=== PATIENT | male | born 1955 | race Caucasian/White ===

== ENCOUNTER 2016-11-07 16:33 | Inpatient (IN) | payer BC ==
[~2016-11-07] VITALS: Ht 180.3 cm; Wt 95.0 kg
[~2016-11-07 16:33] MED LIST: DIPH25CA58 PO
[2016-11-07] MEDS: fentaNYL PF VIAL 100 MCG/2 ML VIAL IV PRN ×3 (17:49→18:55)
[2016-11-07 18:21] LABS: BASO % 0 % (0-3); EOS % 0 % (0-3); HEMATOCRIT 46.3 % (39.0-53.0); HEMOGLOBIN 15.3 g/dL (13.0-17.5); LYMPH # 1.7 x10^3/uL (1.0-4.8); LYMPH % 14 % (24-48); MEAN CORPUSCULAR HEMOGLOBIN 31 pg (25-35); MEAN CORPUSCULAR HGB CONC 33 g/dL (31-37); MEAN CORPUSCULAR VOLUME 95 fL (79-100); MONO % 7 % (0-9); NEUT % 78 % (31-73); PLATELET COUNT 266 x10^3/uL (140-400); RED BLOOD COUNT 4.86 x10^6/uL (4.30-5.70); RED CELL DISTRIBUTION WIDTH 14.1 % (11.5-14.5); WHITE BLOOD COUNT 12.1 x10^3/uL (4.0-11.0)
[2016-11-07 18:31] LABS: CALCIUM 10.3 mg/dL (8.5-10.1); CREATININE 1.1 mg/dL (0.7-1.3); GFR 67.6; POTASSIUM 4.3 mmol/L (3.5-5.1)
[2016-11-07] MEDS: MORPHINE SULFATE 4 MG/ML DISP.SYRIN. IV/SQ PRN ×2 (19:50→21:32)
--- NOTE | 2016-11-07 20:24 | RAD ---
EXAM: CT pelvis without contrast. HISTORY: Right hip pain after a fall. TECHNIQUE: CT of the pelvis was performed without contrast. COMPARISON: None. FINDINGS: Sigmoid diverticulosis is moderate. Some stranding in the root of the mesentery is consistent with mesenteric panniculitis, an incidental finding of no clinical significance. The appendix is not inflamed. There are moderate atherosclerotic calcifications. There are no pathologically enlarged lymph nodes. There is no detectable femoral fracture bilaterally. The joint spaces and alignment of both hips are maintained. There is a small left hip effusion. No pelvic fractures are seen. 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 Degenerative disc disease is moderate to severe at L5-S1. This results in a moderate posterior disc-osteophyte complex. Central canal stenosis is moderate. Neural foraminal stenosis is moderate to severe bilaterally. IMPRESSION: 1. No fractures are identified. There is a small left hip effusion. MRI could assess for soft tissue pathology or completely nondisplaced fractures if there is persistent concern. 2. Moderate to severe degenerative disc disease at L5-S1 with moderate central canal stenosis and moderate to severe bilateral neural foraminal stenosis. *One or more of the following individualized dose reduction techniques were utilized for this examination: 1. Automated exposure control. 2. Adjustment of the mA and/or kV according to patient size. 3. Use of iterative reconstruction technique. Electronically signed by: Donal Joya MD (11/07/2016 8:21 PM) [facility]
[2016-11-07] MEDS ORDERED: ONDANSETRON PF 4 MG/2 ML VIAL. IV PRN (21:30)
[2016-11-07] MEDS ORDERED: ACETAMINOPHEN 325 MG TABLET. PO PRN (21:30)
[2016-11-07 22:30] VITALS: BP 131/77
--- NOTE | 2016-11-07 22:51 | PHYS DOC ---
Past Medical History Past Medical History: Arthritis, Other Additional Past Medical Histor: bilat shoulder pain Past Surgical History: Other Additional Past Surgical Histo: bilat shoulder sx, Alcohol Use: Occasionally Drug Use: None Adult General Chief Complaint Chief Complaint: HIP PAIN HPI HPI Patient is a 61 year old male who presents with left hip pain. The patient reports he accidentally rolled out of bed 4 days ago and fell onto his left side. He denies head trauma or loss of consciousness at that time. Reports severe hip pain and has been unable to ambulate since the time of the fall. He typically does not require a cane or walker for ambulation. Denies previous history of hip injury or surgery. Seen by his PCP today and referred here for further evaluation. PCP is Dr. Villarreal. Review of Systems Review of Systems Constitutional: Denies fever or chills HENT: Denies nasal congestion or sore throat Respiratory: Denies cough or shortness of breath Cardiovascular: Denies chest pain or edema GI: Denies abdominal pain, nausea, vomiting Musculoskeletal: Reports hip pain Integument: Denies rash or skin lesions Neurologic: Denies headache, focal weakness or sensory changes Current Medications Current Medications Current Medications Medications (Trade) Dose Ordered Sig/Zaria Start Time Stop Time Status Last Admin Dose Admin Fentanyl Citrate (Fentanyl 2ml Vial) 50 mcg PRN Q15MIN PRN 11/07/16 17:30 11/08/16 17:29 11/07/16 18:55 50 MCG Morphine Sulfate 4 mg PRN Q15MIN PRN 11/07/16 19:15 11/08/16 19:14 11/07/16 21:32 4 MG Allergies Allergies Allergies Coded Allergies Type Severity Reaction Last Updated Verified sulindac Allergy Severe 02/23/16 Yes Physical Exam Physical Exam Constitutional: Well developed, well nourished, no acute distress, non-toxic appearance. HENT: Normocephalic, atraumatic, bilateral external ears normal, oropharynx moist, nose normal. Eyes: PERRLA, EOMI, conjunctiva normal, no discharge. Neck: supple, no stridor. no midline c-spine tenderness. Cardiovascular: RRR, no murmurs, no edema. Lungs & Thorax: LCTAB, no wheezing, no respiratory distress. Abdomen: soft, nontender, nondistended. Skin: Warm, dry, no erythema, no rash. Back: No spinal tenderness or step offs. Extremities: left hip no swelling or deformity, diffuse tenderness laterally & posteriorly with palpation, no knee or ankle tenderness, unable to perform any active range of motion at the hip, DP and PT 2+, sensation intact to the foot Neurologic: Alert and oriented X 3, normal motor & sensory function, no focal deficits noted. Psychologic: Affect normal, judgement normal, mood normal. Current Patient Data Vital Signs Vital Signs Date Time Temp Pulse Resp B/P (MAP) Pulse Ox O2 Delivery O2 Flow Rate FiO2 11/07/16 20:25 Room Air 11/07/16 19:30 84 147/93 (111) 95 11/07/16 18:55 24 11/07/16 17:13 98.1 98.1 Lab Values Laboratory Tests Test 11/07/16 17:20 White Blood Count 12.1 x10^3/uL (4.0-11.0) H Red Blood Count 4.86 x10^6/uL (4.30-5.70) Hemoglobin 15.3 g/dL (13.0-17.5) Hematocrit 46.3 % (39.0-53.0) Mean Corpuscular Volume 95 fL (79-100) Mean Corpuscular Hemoglobin 31 pg (25-35) Mean Corpuscular Hemoglobin Concent 33 g/dL (31-37) Red Cell Distribution Width 14.1 % (11.5-14.5) Platelet Count 266 x10^3/uL (140-400) Neutrophils (%) (Auto) 78 % (31-73) H Lymphocytes (%) (Auto) 14 % (24-48) L Monocytes (%) (Auto) 7 % (0-9) Eosinophils (%) (Auto) 0 % (0-3) Basophils (%) (Auto) 0 % (0-3) Neutrophils # (Auto) 9.5 x10^3uL (1.8-7.7) H Lymphocytes # (Auto) 1.7 x10^3/uL (1.0-4.8) Monocytes # (Auto) 0.8 x10^3/uL (0.0-1.1) Eosinophils # (Auto) 0.1 x10^3/uL (0.0-0.7) Basophils # (Auto) 0.0 x10^3/uL (0.0-0.2) Sodium Level 132 mmol/L (136-145) L Potassium Level 4.3 mmol/L (3.5-5.1) Chloride Level 95 mmol/L (98-107) L Carbon Dioxide Level 24 mmol/L (21-32) Anion Gap 13 (6-14) Blood Urea Nitrogen 18 mg/dL (8-26) Creatinine 1.1 mg/dL (0.7-1.3) Estimated GFR (Cockcroft-Gault) 67.6 Glucose Level 108 mg/dL (70-99) H Calcium Level 10.3 mg/dL (8.5-10.1) H Laboratory Tests 11/07/16 17:20 Laboratory Tests 11/07/16 17:20 EKG EKG [] Radiology/Procedures Radiology/Procedures PROCEDURE: CT PELVIS WO CONTRAST EXAM: CT pelvis without contrast. HISTORY: Right hip pain after a fall. TECHNIQUE: CT of the pelvis was performed without contrast. COMPARISON: None. FINDINGS: Sigmoid diverticulosis is moderate. Some stranding in the root of the mesentery is consistent with mesenteric panniculitis, an incidental finding of no clinical significance. The appendix is not inflamed. There are moderate atherosclerotic calcifications. There are no pathologically enlarged lymph nodes. There is no detectable femoral fracture bilaterally. The joint spaces and alignment of both hips are maintained. There is a small left hip effusion. No pelvic fractures are seen. 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 Degenerative disc disease is moderate to severe at L5-S1. This results in a moderate posterior disc-osteophyte complex. Central canal stenosis is moderate. Neural foraminal stenosis is moderate to severe bilaterally. IMPRESSION: 1. No fractures are identified. There is a small left hip effusion. MRI could assess for soft tissue pathology or completely nondisplaced fractures if there is persistent concern. 2. Moderate to severe degenerative disc disease at L5-S1 with moderate central canal stenosis and moderate to severe bilateral neural foraminal stenosis. *One or more of the following individualized dose reduction techniques were utilized for this examination: 1. Automated exposure control. 2. Adjustment of the mA and/or kV according to patient size. 3. Use of iterative reconstruction technique. Electronically signed by: Donal Joya MD (11/07/2016 8:21 PM) [facility] DICTATED and SIGNED BY: TAN JOYA MD DATE: 11/07/162011 X-ray left hip and pelvis: Interpreted by me: No fracture or dislocation, no acute process [] Course & Med Decision Making Course & Med Decision Making Pertinent Labs and Imaging studies reviewed. (See chart for details) The patient presents with hip pain after fall. He appears to be a significant amount of discomfort when being moved from the wheelchair to the bed. Gave fentanyl as well as morphine for pain. X-ray showed no obvious fracture. Obtain CT of the pelvis to rule out occult fracture. There was no demonstrated fracture on CT. However there was a hip effusion. See additional recommendations made by radiologist for further workup. I did recommend admission to the hospital for further evaluation and treatment given severity of patient's pain. The patient agreed with plan of care. Discussed with Dr. Villarreal who agrees to admit to inpatient status. We'll place rehabilitation consult to Dr. Gómez. The patient is being admitted in stable condition. [] Dragon Disclaimer Dragon Disclaimer This electronic medical record was generated, in whole or in part, using a voice recognition dictation system. Departure Departure Impression: Primary Impression: Hip pain Disposition: 01 HOME, SELF-CARE Admitting Physician: David Villarreal Condition: STABLE RAHUL DON MD Nov 07, 2016 22:51
[2016-11-08] VITALS (7 sets, daily range): BP systolic 73–135; BP diastolic 35–95
--- NOTE | 2016-11-08 01:05 | ACF ---
Admission Forms Criteria PAIN MANAGEMENT GR Clinical Indications for Admission to Inpatient Care (Place 'X' for any and all applicable criteria): Hospital admission is needed for appropriate care of the patient because of 1 or more of the following are present (1)(2)(3)(4)(5): [ ]I. Severe pain requiring acute inpatient management as indicated by 1 or more of the following (2)(5)(10): [ ]a) Continuous or frequent (eg, every 2 to 4 hours) parenteral analgesics required [A] [ ]b) Necessity (ie, alternative approaches not effective) for analgesic regimen that can only be performed or initiated in inpatient setting [X]II. Pain causing debilitation to the point of inability to function or be supported at any other level of care [ ]III. Severe side effects from pain medications as indicated by ANY ONE of the following (12)(13)(14)(15): [ ]a) Uncontrollable seizures [ ]b) Cardiac arrhythmias of immediate concern [ ]c) Dehydration that is severe or persistent [ ]d) Vomiting that is severe or persistent [ ]e) Altered mental status that is severe or persistent [ ]f) Obstipation with inadequate GI function to maintain nutrition The original [employer] content created by [employer] has been revised. The portions of the content which have been revised are identified through the use of italic text or in bold, and [facility] has neither reviewed nor approved the modified material. All other unmodified content is copyright [employer]. Please see references footnoted in the original [employer] edition 2016 Admission Criteria Met?: Yes JESSENIA MARCELO Nov 08, 2016 01:05
[2016-11-08] MEDS: MORPHINE SULFATE 4 MG/ML DISP.SYRIN. IV PRN ×3 (01:58→12:48)
--- NOTE | 2016-11-08 07:17 | RAD ---
HIP LEFT 2V WITH PELVIS Clinical Indication: fall pain Comparison: None. Findings: No acute fracture or malalignment. Mild bilateral hip, bilateral SI joint, and pubic symphysis arthrosis. Bony mineralization is normal for the patient's age. No significant soft tissue abnormality. IMPRESSION: 1. No acute fracture or malalignment. 2. Mild bilateral hip, bilateral SI joint, and pubic symphysis arthrosis.
--- NOTE | 2016-11-08 08:57 | PDOC ---
Provider Note Provider Note [id number] MANUEL CROUCH MD Nov 08, 2016 08:57
[2016-11-08] MEDS: FAMOTIDINE 20 MG TABLET. PO SCH ×2 (09:24→21:28)
[2016-11-08] MEDS: CELECOXIB 200 MG CAPSULE. PO SCH ×2 (09:25→21:28)
--- NOTE | 2016-11-08 09:45 | HP ---
ADMIT DATE: 11/07/2016 CHIEF COMPLAINT: Joint pain. HISTORY OF PRESENT ILLNESS: A 61-year-old white male, who has a history of multiple joint pains, and has been stiff and sore in his hands recently and then had a fall at home, hitting his left hip and has been unable to bear weight since then. X-rays and CT did not show any fractures, though some arthritic changes in the hip and low back and he has got a small joint effusion in the left hip as well. He relates ongoing pain in both hands, the right knee and left hip for quite a while before the falls. He is recovering from bilateral shoulder replacement surgery done at [facility] in the last, about 3 months ago. He is on no prescription medicines. PAST MEDICAL HISTORY: ALLERGIES TO SULINDAC. He has had some arthroscopic surgery of both knees, but no other joint replacements aside from the shoulder replacements, or any other medical surgeries. SOCIAL HISTORY: Still a smoker, trying to quit. He has been smoking for about 40 years. A light drinker. , not employed. FAMILY HISTORY: Unremarkable. No history in the family of gout, rheumatoid arthritis, lupus, or other causes of vascular diseases. REVIEW OF SYSTEMS: No other specific complaints. OBJECTIVE: ENT: All within normal limits. NECK: No bruits, nodes, or masses. LUNGS: Clear with decreased breath sounds. CARDIOVASCULAR: Regular rate. Mild tachycardia. No murmur. ABDOMEN: Soft, benign, and nontender. No masses, megaly, or nodes. EXTREMITIES: Left hand is tender, specifically index and middle finger. MCP joints with some swelling and redness present. Right hand is less tender. No edema is noted. Both wrists are mildly tender, and the right knee is warm without effusion, left knee is cool. Ankles and feet are normal. He has good distal pulses. He has 2+ clubbing of the fingernails bilaterally. Elbows are unremarkable. NEUROLOGIC: Physiologic, not able to move well. Moves all extremities equally. Gait was not tested. No tremors were noted. Cranial nerves, motor, sensory, and cerebellar appear to be intact. Mental status is intact. 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 PLAN: Sed rate, uric acid, MAGGI, and rheumatoid factor. We will start Meloxicam and Pepcid and consider injecting the left trochanteric bursa, which is tender. MANUEL CROUCH MD DR: CHARLIE/ryan JOB#: [id number] / [id number]
--- NOTE | 2016-11-08 12:16 | CONS ---
DATE OF CONSULTATION: 11/08/2016 ATTENDING PHYSICIAN: David Villarreal MD. The patient was seen at the request of Dr. Villarreal for rehab evaluation. 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 The patient with history of degenerative joint disease, status post bilateral shoulder surgeries, reverse shoulder arthroplasty on the right side. The patient was admitted with left hip pain. He reportedly accidentally rolled out of bed four days ago and fell on his left side. The patient is having severe pain in his left hip and unable to ambulate ever since that time. The patient has been independent with his mobility and self-care prior to the present hospitalization, has been working on a regular basis. He lives with his in a [facility] home, had stairs to manage. The patient is known ALLERGIC TO SULINDAC. The patient admits some numbness in his left hand. He also admits pain in his right elbow and left hand with associated swelling. The patient had x-rays and CT scan of his pelvis and left hip, which failed to reveal any acute abnormality. It revealed mild degenerative changes in the lumbar spine and both hips. The patient denies any trouble to the bowel or bladder control or any neck pain at present time. PHYSICAL EXAMINATION: Today revealed a middle-aged male. He is in moderate distress about his left hip, left hand and right elbow. He had tenderness to palpation left index and middle fingers at metacarpophalangeal joint with there is some swelling. He also had tenderness to palpation over right lateral humeral epicondylar area and adjoining forearm extensor muscles and left gluteal muscles, left trochanteric bursa and to some extent over left sacroiliac joint area. He had significant discomfort while trying to move his left hip, which is painfully limited. The patient had 4+/5 grade muscle strength overall though he is having difficulty to try to make a ____ with his left hand and also pain while trying to extend his right elbow. He had pain on range of motion of his right elbow and also left hand. Deep tendon reflexes are 2+ and symmetrical and he had equal perception of touch and pinprick sensation bilaterally. He is having significant discomfort in trying to move in the bed. Straight leg raising test is negative bilaterally. 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 RECOMMENDATIONS: To obtain MRI scan of his lumbar spine and left hip and to obtain x-rays of his right elbow and left hand to ask Orthopedics to see him about his left hip pain. Dr. Villarreal, I appreciate asking me to participate in the care of this interesting patient. I will be glad to follow him with you as needed for the rehabilitation. SASKIA MARK MD DR: VISHNU/ryan JOB#: [id number] / [id number]
--- NOTE | 2016-11-08 13:49 | RAD ---
Chest, 2 views, 11/08/2016: History: Fever Comparison is made to a study from 09/26/2014. The heart size is normal. There is calcific plaquing of the aorta. There are moderate reticular nodular interstitial type opacities in the lungs. These appear to have worsened since 09/26/2014. No pulmonary mass is seen. There is no evidence of pleural fluid. Moderate hypertrophic spurring is present in the spine. Bilateral shoulder prostheses are now in place. IMPRESSION: Moderate bilateral interstitial opacities appear to have worsened since 09/26/2014. This may represent worsening chronic interstitial lung disease or superimposed atypical pneumonia.
--- NOTE | 2016-11-08 13:53 | RAD ---
Right elbow, 3 views, 11/08/2016: History: Fall, pain The bony structures are demineralized. Small calcific densities along the posterior margin of the olecranon process are sclerotic and are most likely old or chronic. No definite acute fracture is seen. There is bowing of the fat pads at the elbow joint suggesting a joint effusion. Right forearm, 2 views, 11/08/2016: No forearm fracture is identified. There is mild subcutaneous edema about the forearm. IMPRESSION: 1. Mild patchy bony demineralization. 2. Small calcific densities along the posterior margin of the proximal ulna are probably old. A recent cortical fracture is less likely. 3. Right elbow joint effusion.
[2016-11-08] MEDS: HYDROcodone/APAP 5/325MG 1 TAB TABLET PO PRN ×2 (13:58→18:28)
--- NOTE | 2016-11-08 15:22 | RAD ---
Bilateral hands, 6 views, 11/08/2016: History: Bilateral hand swelling and left pain There is patchy bony demineralization. There are mild degenerative changes at scattered interphalangeal joints. No definite bone erosions are seen. No acute fracture or dislocation is identified. IMPRESSION: No acute bony abnormality is detected.
[2016-11-08 16:06] LABS: BILIRUBIN,URINE SMALL (NEG); GLUCOSE,URINE NEGATIVE (NEG); NITRITE,URINE NEGATIVE (NEG); PROTEIN,URINE NEGATIVE (NEG-TRACE)
[2016-11-08 16:18] LABS: BACTERIA,URINE 0 /HPF (0-FEW); RBC,URINE 0 /HPF (0-2); SQUAMOUS EPITHELIAL CELL,UR OCC /LPF; WBC,URINE OCC /HPF (0-4)
[2016-11-08 20:11] LABS: RHEUMATOID FACTOR 17.4 IU/mL (0.0-13.9)
[2016-11-09] MEDS: HYDROcodone/APAP 5/325MG 1 TAB TABLET PO PRN ×3 (00:45→17:40)
[2016-11-09 03:16] VITALS: BP 113/71
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
[2016-11-09 07:00] VITALS: BP 123/82
[2016-11-09] MEDS: FAMOTIDINE 20 MG TABLET. PO SCH ×2 (08:46→21:14)
[2016-11-09] MEDS: CELECOXIB 200 MG CAPSULE. PO SCH (08:46)
--- NOTE | 2016-11-09 09:45 | PDOC ---
Provider Note Provider Note a little less pain w/ meds- joints back tender insulation board- esr high 96, uric acid ok, RA + - feel clinically he has RA- will inject roch bursa, start prednisone, do anti ccp,, after dc will discuss plaquenil and MTX in office if CCP +- depomedrol 40 mg/marcaine 3 ml inj 25 g to L GT bursa, sherice well- could have component of PMR as well- will dc when he is able to walk safely, likely 11/10 MANUEL CROUCH MD Nov 09, 2016 09:45
--- NOTE | 2016-11-09 09:47 | DISCH ---
DISCHARGE INSTRUCTIONS Condition on Discharge Condition on Discharge: Stable Activity After Discharge Activity Instructions for Disc: Activity as tolerated Follow-Up Follow up with: MANUEL Monson MD Nov 09, 2016 09:47
[2016-11-09] MEDS ORDERED: BUPIVACAINE MPF 0.25% 10 ML VIAL. IJ ONE (10:00)
[2016-11-09] MEDS ORDERED: methylPREDNISolone ACETATE 40 MG/ML VIAL. INJ ONE (10:00)
[2016-11-09] MEDS ORDERED: BUPIVACAINE MPF 0.25% 10 ML VIAL. ONE (10:00)
[2016-11-09] MEDS ORDERED: methylPREDNISolone ACETATE 40 MG/ML VIAL. ONE (10:00)
--- NOTE | 2016-11-09 10:04 | PDOC ---
PROGRESS NOTES Subjective Subjective He feels better after left trochanteric bursa injection. Objective Objective Vital Signs Date Time Temp Pulse Resp B/P (MAP) Pulse Ox O2 Delivery O2 Flow Rate FiO2 11/09/16 08:32 Room Air 11/09/16 07:00 97.9 71 16 123/82 (96) 96 97.9 Intake and Output 11/09/16 07:00 Intake Total 1860 ml Output Total 600 ml Balance 1260 ml Intake Oral 1860 ml Output Urine Total 600 ml # Voids 1 Physical Exam Physical Exam He is moving his left lower extremity with less pain this AM but still having some pain on movement of right elbow and less stiffness in his left hand.I spoke to . Plan Plan of Care Hopefully home tomorrow when medically stable. Comment Review of Relevant I have reviewed the following items mustapha (where applicable) has been applied. Labs Laboratory Tests Test 11/07/16 17:20 11/08/16 12:45 11/08/16 15:45 White Blood Count 12.1 x10^3/uL (4.0-11.0) Red Blood Count 4.86 x10^6/uL (4.30-5.70) Hemoglobin 15.3 g/dL (13.0-17.5) Hematocrit 46.3 % (39.0-53.0) Mean Corpuscular Volume 95 fL (79-100) Mean Corpuscular Hemoglobin 31 pg (25-35) Mean Corpuscular Hemoglobin Concent 33 g/dL (31-37) Red Cell Distribution Width 14.1 % (11.5-14.5) Platelet Count 266 x10^3/uL (140-400) Neutrophils (%) (Auto) 78 % (31-73) Lymphocytes (%) (Auto) 14 % (24-48) Monocytes (%) (Auto) 7 % (0-9) Eosinophils (%) (Auto) 0 % (0-3) Basophils (%) (Auto) 0 % (0-3) Neutrophils # (Auto) 9.5 x10^3uL (1.8-7.7) Lymphocytes # (Auto) 1.7 x10^3/uL (1.0-4.8) Monocytes # (Auto) 0.8 x10^3/uL (0.0-1.1) Eosinophils # (Auto) 0.1 x10^3/uL (0.0-0.7) Basophils # (Auto) 0.0 x10^3/uL (0.0-0.2) Sodium Level 132 mmol/L (136-145) Potassium Level 4.3 mmol/L (3.5-5.1) Chloride Level 95 mmol/L (98-107) Carbon Dioxide Level 24 mmol/L (21-32) Anion Gap 13 (6-14) Blood Urea Nitrogen 18 mg/dL (8-26) Creatinine 1.1 mg/dL (0.7-1.3) Estimated GFR (Cockcroft-Gault) 67.6 Glucose Level 108 mg/dL (70-99) Calcium Level 10.3 mg/dL (8.5-10.1) Erythrocyte Sedimentation Rate 96 (0-15) Uric Acid 5.4 mg/dL (3.5-7.2) Rheumatoid Factor 17.4 IU/mL (0.0-13.9) Urine Color Sis Urine Clarity Clear Urine pH 6.0 Urine Specific [place] >=1.030 Urine Protein Negative mg/dL (NEG-TRACE) Urine Glucose (UA) Negative mg/dL (NEG) Urine Ketones (Stick) Negative mg/dL (NEG) Urine Blood Negative (NEG) Urine Nitrite Negative (NEG) Urine Bilirubin Small (NEG) Urine Urobilinogen Dipstick 1.0 mg/dL (0.2 mg/dL) Urine Leukocyte Esterase Negative (NEG) Urine RBC 0 /HPF (0-2) Urine WBC Occ /HPF (0-4) Urine Squamous Epithelial Cells Occ /LPF Urine Bacteria 0 /HPF (0-FEW) Urine Hyaline Casts Occasional /HPF Urine Granular Casts Occasional /HPF Urine Mucus Mod /LPF Laboratory Tests Test 11/08/16 12:45 11/08/16 15:45 Erythrocyte Sedimentation Rate 96 (0-15) Uric Acid 5.4 mg/dL (3.5-7.2) Rheumatoid Factor 17.4 IU/mL (0.0-13.9) Urine Color Sis Urine Clarity Clear Urine pH 6.0 Urine Specific [place] >=1.030 Urine Protein Negative mg/dL (NEG-TRACE) Urine Glucose (UA) Negative mg/dL (NEG) Urine Ketones (Stick) Negative mg/dL (NEG) Urine Blood Negative (NEG) Urine Nitrite Negative (NEG) Urine Bilirubin Small (NEG) Urine Urobilinogen Dipstick 1.0 mg/dL (0.2 mg/dL) Urine Leukocyte Esterase Negative (NEG) Urine RBC 0 /HPF (0-2) Urine WBC Occ /HPF (0-4) Urine Squamous Epithelial Cells Occ /LPF Urine Bacteria 0 /HPF (0-FEW) Urine Hyaline Casts Occasional /HPF Urine Granular Casts Occasional /HPF Urine Mucus Mod /LPF Medications Current Medications Fentanyl Citrate (Fentanyl 2ml Vial) 50 mcg PRN Q15MIN PRN IV PAIN GREATER THAN 3/10 Last administered on 11/07/16 18:55; Start 11/07/16 at 17:30; Stop at 15:43; Status DC Morphine Sulfate 4 mg PRN Q15MIN PRN IV/SQ PAIN GREATER THAN 3/10 Last administered on 11/07/16 21:32; Start 11/07/16 at 19:15; Stop 11/08/16 at 15:43 ; Status DC Ondansetron HCl (Zofran) 4 mg PRN Q8HRS PRN IV NAUSEA/VOMITING; Start 11/07/16 at 21:30; Stop 11/08/16 at 21:29; Status DC Morphine Sulfate 4 mg PRN Q2HR PRN IV PAIN Last administered on 11/08/16 12:48 ; Start 11/07/16 at 21:30; Stop 11/08/16 at 21:29; Status DC Acetaminophen (Tylenol) 650 mg PRN Q4HRS PRN PO FEVER Last administered on 11/08 04:15; Start 11/07/16 at 21:30; Stop 11/08/16 at 21:29; Status DC Celecoxib (CeleBREX) 200 mg BID PO Last administered on 11/09/16 08:46; Start 11/08/16 at 09:00; Stop 11/09/16 at 09:30; Status DC Famotidine (Pepcid) 20 mg BID PO Last administered on 11/09/16 08:46; Start at 09:00 Acetaminophen/ Hydrocodone Bitart (Lortab 5/325) 1 tab PRN Q6HRS PRN PO PAIN Last administered on 11/09/16 06:29; Start 11/08/16 at 13:30; Stop 11/09/16 at 09:30; Status DC Methylprednisolone Acetate (DEPO-Medrol 40MG VIAL) 40 mg 1X ONCE INJ ; Start at 10:00; Stop 11/09/16 at 10:01 Bupivacaine HCl (Sensorcaine-Mpf 0.25%) 10 ml 1X ONCE IJ ; Start 11/09/16 at 10 :00; Stop 11/09/16 at 10:01 Prednisone (Prednisone) 40 mg DAILY PO ; Start 11/09/16 at 12:00 Acetaminophen/ Hydrocodone Bitart (Lortab 5/325) 1 tab PRN Q4HRS PRN PO PAIN; Start 11/09/16 at 13:30 Active Scripts Active Benadryl (Diphenhydramine Hcl) 25 Mg Capsule 25 Mg PO Q6HRS PRN Reported No Known Medications Prior To Admisstion (Info) Each 1 Each Vitals/I & O Vital Sign - Last 24 Hours 11/08/16 11/08/16 11/08/16 11/08/16 10:49 12:48 13:58 13:59 Temp 98.1 98.1 Pulse 80 Resp 24 B/P (MAP) 135/95 (108) Pulse Ox 93 O2 Delivery Room Air Room Air Room Air Room Air 11/08/16 11/08/16 11/08/16 11/08/16 15:05 16:20 18:28 19:39 Temp 98.4 99.0 98.4 99.0 Pulse 83 80 83 Resp 20 18 B/P (MAP) 77/42 (54) 73/35 (48) 112/72 (85) Pulse Ox 93 93 O2 Delivery Room Air Room Air Room Air 11/08/16 11/08/16 11/09/16 11/09/16 20:00 23:26 00:45 01:45 Temp 98.8 98.8 Pulse 77 Resp 18 16 16 B/P (MAP) 123/77 (92) Pulse Ox 94 O2 Delivery Room Air Room Air Room Air 11/09/16 11/09/16 11/09/16 11/09/16 03:16 06:29 07:00 08:00 Temp 97.9 97.9 97.9 97.9 Pulse 70 71 Resp 18 16 16 B/P (MAP) 113/71 (85) 123/82 (96) Pulse Ox 95 96 O2 Delivery Room Air Room Air Room Air Room Air 11/09/16 08:32 O2 Delivery Room Air Intake and Output 11/08/16 11/08/16 11/09/16 15:00 23:00 07:00 Intake Total 1320 ml 540 ml Output Total 600 ml Balance 1320 ml 540 ml -600 ml SASKIA MARK MD Nov 09, 2016 10:04
--- NOTE | 2016-11-09 10:34 | DS ---
DATE OF DISCHARGE: 11/10/2016 HOSPITAL SUMMARY: A 61-year-old white male admitted with polyarthralgias and pain in left hip after a fall. His left hip x-ray and CT did not show fractures and there were no abnormalities of the bones, in the hands, wrists, and right and chest x-ray was clear as well. RA factor was mildly elevated at 17, sed rate was very high at 96 and the anti-CCP antibody test is pending at this time. Chemistry profile was normal. He was started on Celebrex and then prednisone was added after the diagnosis of rheumatoid arthritis was entertained. I injected the left trochanteric bursa with Depo-Medrol 40 mg with good result and he will be discharged following day after starting prednisone if he is comfortable and ambulatory. FINAL DIAGNOSES: 1. Rheumatoid arthritis, new diagnosis. 2. Left trochanteric bursitis. OPERATIONS, PROCEDURES, COMPLICATIONS: None. CONSULTATIONS: Dr. Leanne Dr. . DISPOSITION: He will take prednisone 40 mg daily until seen in the office in 1 week and assess the anti-CCP result. He may have a component of PMR as well. He will take pain meds as needed and home meds remain the same and we will have to discuss the use of methotrexate and Plaquenil in the office setting pending response to prednisone. MANUEL CROUCH MD DR: CHARLIE/ryan JOB#: [id number] / [id number]
[2016-11-09 11:00] VITALS: BP 107/67
[2016-11-09] MEDS: predniSONE 20 MG TABLET PO SCH (12:16)
[2016-11-09 15:00] VITALS: BP 131/90
[2016-11-09 19:25] VITALS: BP 117/80
[2016-11-09 23:29] VITALS: BP 121/84
[2016-11-10 03:20] VITALS: BP 148/88
[2016-11-10] MEDS: HYDROcodone/APAP 5/325MG 1 TAB TABLET PO PRN (06:15)
[2016-11-10 07:12] VITALS: BP 117/82
[2016-11-10] MEDS: predniSONE 20 MG TABLET PO SCH (08:50)
[2016-11-10] MEDS: FAMOTIDINE 20 MG TABLET. PO SCH (08:50)
--- NOTE | 2016-11-10 09:44 | PDOC ---
PROGRESS NOTES Subjective Subjective He feels better. Objective Objective Vital Signs Date Time Temp Pulse Resp B/P (MAP) Pulse Ox O2 Delivery O2 Flow Rate FiO2 11/10/16 07:15 16 95 Room Air 11/10/16 07:12 97.5 68 117/82 (94) 97.5 Intake and Output 11/10/16 07:00 Intake Total 450 ml Output Total 250 ml Balance 200 ml Intake Oral 450 ml Output Urine Total 250 ml # Voids 3 Physical Exam Physical Exam He is moving around well with roller walker. Plan Plan of Care Agree with plans for home and to provide him with roller walker for use for the time being. Comment Review of Relevant I have reviewed the following items mustapha (where applicable) has been applied. Labs Laboratory Tests Test 11/08/16 12:45 11/08/16 15:45 Erythrocyte Sedimentation Rate 96 (0-15) Uric Acid 5.4 mg/dL (3.5-7.2) Rheumatoid Factor 17.4 IU/mL (0.0-13.9) Urine Color Sis Urine Clarity Clear Urine pH 6.0 Urine Specific [place] >=1.030 Urine Protein Negative mg/dL (NEG-TRACE) Urine Glucose (UA) Negative mg/dL (NEG) Urine Ketones (Stick) Negative mg/dL (NEG) Urine Blood Negative (NEG) Urine Nitrite Negative (NEG) Urine Bilirubin Small (NEG) Urine Urobilinogen Dipstick 1.0 mg/dL (0.2 mg/dL) Urine Leukocyte Esterase Negative (NEG) Urine RBC 0 /HPF (0-2) Urine WBC Occ /HPF (0-4) Urine Squamous Epithelial Cells Occ /LPF Urine Bacteria 0 /HPF (0-FEW) Urine Hyaline Casts Occasional /HPF Urine Granular Casts Occasional /HPF Urine Mucus Mod /LPF Medications Current Medications Fentanyl Citrate (Fentanyl 2ml Vial) 50 mcg PRN Q15MIN PRN IV PAIN GREATER THAN 3/10 Last administered on 11/07/16 18:55; Start 11/07/16 at 17:30; Stop at 15:43; Status DC Morphine Sulfate 4 mg PRN Q15MIN PRN IV/SQ PAIN GREATER THAN 3/10 Last administered on 11/07/16 21:32; Start 11/07/16 at 19:15; Stop 11/08/16 at 15:43 ; Status DC Ondansetron HCl (Zofran) 4 mg PRN Q8HRS PRN IV NAUSEA/VOMITING; Start 11/07/16 at 21:30; Stop 11/08/16 at 21:29; Status DC Morphine Sulfate 4 mg PRN Q2HR PRN IV PAIN Last administered on 11/08/16 12:48 ; Start 11/07/16 at 21:30; Stop 11/08/16 at 21:29; Status DC Acetaminophen (Tylenol) 650 mg PRN Q4HRS PRN PO FEVER Last administered on 11/08 04:15; Start 11/07/16 at 21:30; Stop 11/08/16 at 21:29; Status DC Celecoxib (CeleBREX) 200 mg BID PO Last administered on 11/09/16 08:46; Start 11/08/16 at 09:00; Stop 11/09/16 at 09:30; Status DC Famotidine (Pepcid) 20 mg BID PO Last administered on 11/10/16 08:50; Start at 09:00 Acetaminophen/ Hydrocodone Bitart (Lortab 5/325) 1 tab PRN Q6HRS PRN PO PAIN Last administered on 11/09/16 06:29; Start 11/08/16 at 13:30; Stop 11/09/16 at 09:30; Status DC Methylprednisolone Acetate (DEPO-Medrol 40MG VIAL) 40 mg 1X ONCE INJ ; Start at 10:00; Stop 11/09/16 at 10:01; Status DC Bupivacaine HCl (Sensorcaine-Mpf 0.25%) 10 ml 1X ONCE IJ ; Start 11/09/16 at 10 :00; Stop 11/09/16 at 10:01; Status DC Prednisone (Prednisone) 40 mg DAILY PO Last administered on 11/10/16 08:50; Start 11/09/16 at 12:00 Acetaminophen/ Hydrocodone Bitart (Lortab 5/325) 1 tab PRN Q4HRS PRN PO PAIN Last administered on 11/10/16 06:15; Start 11/09/16 at 13:30 Methylprednisolone Acetate (DEPO-Medrol 40MG VIAL) 40 mg STK-MED ONCE .ROUTE ; Start 11/09/16 at 10:00; Stop 11/10/16 at 09:27; Status DC Bupivacaine HCl (Sensorcaine-Mpf 0.25%) 10 ml STK-MED ONCE .ROUTE ; Start at 10:00; Stop 11/10/16 at 09:27; Status DC Active Scripts Active Benadryl (Diphenhydramine Hcl) 25 Mg Capsule 25 Mg PO Q6HRS PRN Reported No Known Medications Prior To Admisstion (Info) Each 1 Each Vitals/I & O Vital Sign - Last 24 Hours 11/09/16 11/09/16 11/09/16 11/09/16 11:00 15:00 17:40 19:25 Temp 99.0 98.4 98.6 99.0 98.4 98.6 Pulse 69 73 82 Resp 17 18 18 B/P (MAP) 107/67 (80) 131/90 (104) 117/80 (92) Pulse Ox 95 96 95 O2 Delivery Room Air Room Air Room Air Room Air 11/09/16 11/09/16 11/10/16 11/10/16 19:45 23:29 03:20 06:15 Temp 97.9 97.9 97.9 97.9 Pulse 84 76 Resp 18 18 16 B/P (MAP) 121/84 (96) 148/88 (108) Pulse Ox 95 97 O2 Delivery Room Air Room Air Room Air Room Air 11/10/16 11/10/16 07:12 07:15 Temp 97.5 97.5 Pulse 68 Resp 18 16 B/P (MAP) 117/82 (94) Pulse Ox 94 95 O2 Delivery Room Air Room Air Intake and Output 11/09/16 11/09/16 11/10/16 15:00 23:00 07:00 Intake Total 450 ml Output Total 250 ml Balance 200 ml SASKIA MARK MD Nov 10, 2016 09:44
[2016-11-10 10:39] VITALS: BP 106/67
--- NOTE | 2016-11-10 11:42 | PDOC ---
SUBJECTIVE Subjective FEELS MUCH BETTER, HANDS ARE BETTER , ELBOW NO WELLING, WALKED TO BATHROOM AND BACK OBJECTIVE Vital Signs Vital Signs Date Time Temp Pulse Resp B/P (MAP) Pulse Ox O2 Delivery O2 Flow Rate FiO2 11/10/16 10:39 97.7 73 22 106/67 (80) 93 Room Air 97.7 11/10/16 07:15 16 95 Room Air 11/10/16 07:12 97.5 68 18 117/82 (94) 94 Room Air 97.5 11/10/16 06:15 16 Room Air 11/10/16 03:20 97.9 76 18 148/88 (108) 97 Room Air 97.9 11/09/16 23:29 97.9 84 18 121/84 (96) 95 Room Air 97.9 11/09/16 19:45 Room Air 11/09/16 19:25 98.6 82 18 117/80 (92) 95 Room Air 98.6 11/09/16 17:40 Room Air 11/09/16 15:00 98.4 73 18 131/90 (104) 96 Room Air 98.4 I & O Intake and Output 11/10/16 07:00 Intake Total 450 ml Output Total 250 ml Balance 200 ml Intake Oral 450 ml Output Urine Total 250 ml # Voids 3 PHYSICAL EXAM Physical Exam LESS JOINTS SWELLING , FEELS BETTER ASSESSMENT/PLAN Assessment/Plan RA BETTER WITH PREDNISONE, HOME TODAY ON STEROIDS PLANS FOR ANTI-CCP OUT PT AND FURTHER F/U BY DR CROUCH Problems: MICHELE EMERSON MD Nov 10, 2016 11:42
== END 2016-11-10 12:00 | disposition home or self-care (01) | DRG 547 ==
LOC: ER 16:33 → 4 NORTH 20:31
PROVIDERS: ADMIT Family Medicine; ATTEND Family Medicine
PROC: 3E0U33Z Introduction of Anti-inflammatory into Joints, Percutaneous Approach (ICD-10-PCS; principal; 2016-11-08)
DX: M06.9 Rheumatoid arthritis, unspecified (principal); F17.200 Nicotine dependence, unspecified, uncomplicated; J44.9 Chronic obstructive pulmonary disease, unspecified; M70.62 Trochanteric bursitis, left hip; S50.02XA Contusion of left elbow, initial encounter; W06.XXXA Fall from bed, initial encounter; Z96.611 Presence of right artificial shoulder joint; Z96.612 Presence of left artificial shoulder joint; Y92.009 Unspecified place in unspecified non-institutional (private) residence as the place of occurrence of the external cause; Z88.8 Allergy status to other drugs, medicaments and biological substances; S73.102A Unspecified sprain of left hip, initial encounter; Y93.89 Activity, other specified; Y99.9 Unspecified external cause status
CPT/HCPCS: 36415; 71020; 72192; 73080; 73090; 73130; 73502; 80048; 81001; 84550; 85027; 85651; 86200; 86431; 96374; 96375; J1030; J2270; J3010; J3490; J7512; 97110; 97116; 99285-25

== ENCOUNTER → 2016-12-14 | Outpatient (CLI) | payer BC ==
--- NOTE | 2016-12-14 13:41 | KCIC ---
History: New diagnosis of polyarthralgia, evaluate rheumatoid arthritis versus osteoarthritis. Comparison: None. Findings: PA, lateral, and oblique views of the left hand. No acute fracture or dislocation is identified. No erosive changes are seen. Minimal 1st CMC degeneration is seen. There is mild narrowing of the 2nd MCP joint and mild irregularity of the articular surface. Mild articular irregularity seen involving the ulnar aspect of the 3rd MCP joint. PA, lateral, and oblique views of the right hand. No acute fracture or dislocation is identified. No erosive changes are seen. There is mild narrowing and articular irregularity involving the 2nd 3rd MCP joints. Impression: 1. No erosive changes are identified. 2. 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 3. Mild arthritic changes of the bilateral 2nd and 3rd MCP joints. This finding could relate to mild degeneration or possibly early calcified pyrophosphate deposition disease (CPPD). Electronically signed by: Ander Davies MD (12/14/2016 1:37 PM) [id number]
== END | disposition home or self-care (01) ==
LOC: KCIC 12:14
PROVIDERS: ATTEND Internal Medicine Rheumatology
DX: M25.50 Pain in unspecified joint (principal)
CPT/HCPCS: 73130